=== PATIENT | male | born 1970 ===

== ENCOUNTER 2018-10-27 11:45 | Outpatient (CLI) | payer OTHER | END 2018-10-27 17:00 | disposition home or self-care (01) | LOC: SONOGRAMA 11:45 | DX: M25.512 Pain in left shoulder (principal); M25.522 Pain in left elbow; M25.521 Pain in right elbow ==

== ENCOUNTER → 2021-01-09 | Outpatient (CLI) | payer OTHER | END | disposition home or self-care (01) | LOC: MRI 08:30 | PROVIDERS: ATTEND Radiology Diagnostic Radiology | DX: M25.511 Pain in right shoulder (principal); M54.12 Radiculopathy, cervical region; G89.29 Other chronic pain; M54.5 Low back pain | CPT/HCPCS: 72141; 72148 ==

== ENCOUNTER 2022-07-02 07:06 | Outpatient (CLI) | payer OTHER | END 2022-07-02 15:21 | disposition home or self-care (01) | LOC: MRI 07:06 | PROVIDERS: ATTEND Neurological Surgery | DX: R05.3 Chronic cough (principal); M51.06 Intervertebral disc disorders with myelopathy, lumbar region | CPT/HCPCS: 72148 ==

== ENCOUNTER → 2022-12-26 | Outpatient (CLI) | payer OTHER | END | disposition home or self-care (01) | LOC: TOM 06:26 | PROVIDERS: ATTEND Radiology Diagnostic Radiology | DX: R05.3 Chronic cough (principal); E04.1 Nontoxic single thyroid nodule ==

== ENCOUNTER 2023-01-10 10:10 | Outpatient (CLI) | payer OTHER | END 2023-01-10 10:12 | disposition home or self-care (01) | LOC: SONOGRAMA 10:10 | PROVIDERS: ATTEND Pathology Anatomic Pathology & Clinical Pathology | DX: D34 Benign neoplasm of thyroid gland (principal); E04.9 Nontoxic goiter, unspecified ==

== ENCOUNTER 2023-03-18 10:42 | Outpatient (CLI) | payer OTHER | END 2023-03-18 15:09 | disposition home or self-care (01) | LOC: RAD 10:42 | PROVIDERS: ATTEND Radiology Diagnostic Radiology | DX: Z01.818 Encounter for other preprocedural examination (principal) ==